=== PATIENT | male | born 1995 ===

== ENCOUNTER 2017-01-04 00:28 | Emergency (ER) | payer OTHER ==
[2017-01-04] MEDS ORDERED: Iohexol 240 (50 ml) PO ONE (00:44)
[2017-01-04] MEDS ORDERED: Iohexol 240 (50 ml) ONE (01:03)
[2017-01-04 01:13] LABS: BASO % 0.7 % (0.0-2.0); EOS # 0.2 K/uL (0.0-0.7); EOS % 3.2 % (0.0-4.0); HEMATOCRIT 40.1 % (35.0-51.0); LYMPH # 2.8 K/uL (1.0-4.3); LYMPH % 42.1 % (20.0-40.0); MEAN CELL VOLUME 90.5 fl (80.0-94.0); MEAN CORPUSCULAR HEMOGLOBIN 29.9 pg (27.0-31.0); MEAN CORPUSCULAR HGB CONC 33.1 g/dL (33.0-37.0); MEAN PLATELET VOLUME 9.4 fl (7.2-11.7); MONO # 0.6 K/uL (0.0-0.8); MONO % 8.6 % (0.0-10.0); NEUT % 45.4 % (50.0-75.0); NRBC % 0.1 % (0.0-0.0); RED CELL DISTRIBUTION WIDTH 12.8 % (11.5-14.5); WHITE BLOOD COUNT 6.6 K/uL (4.8-10.8)
[2017-01-04 01:19] LABS: RBC URINE 3 /hpf (0-3); URINE BILIRUBIN NEGATIVE (NEGATIVE); URINE BLOOD NEGATIVE (NEGATIVE); URINE COLOR YELLOW (YELLOW); URINE GLUCOSE (UA) NEG (Normal); URINE KETONE NEGATIVE (NEGATIVE); URINE LEUKOCYTE ESTERASE NEG Leu/uL (Negative); URINE PROTEIN NEGATIVE (NEGATIVE); URINE UROBILINOGEN 0.2-1.0 mg/dL (0.2-1.0); WBC URINE 1 /hpf (0-5)
[2017-01-04 01:20] LABS: ALB/GLOB RATIO 1.6 (1.0-2.1); ALKALINE PHOSPHATASE 69 U/L (38-126); ALT/SGPT 29 U/L (21-72); AST/SGOT 28 U/L (17-59); BILIRUBIN,TOTAL 0.8 mg/dl (0.2-1.3); BLOOD UREA NITROGEN 14 mg/dl (9-20); CALCIUM 9.4 mg/dL (8.4-10.2); CARBON DIOXIDE 23 mmol/L (22-30); CHLORIDE 106 mmol/L (98-107); GFR AFRICAN-AMERICAN > 60; GLUCOSE,RANDOM 97 mg/dL (75-110); LIPASE 62 U/L (23-300); POTASSIUM 3.8 MMOL/L (3.6-5.0); SODIUM 143 mmol/l (132-148); TOTAL PROTEIN 7.4 G/DL (6.3-8.2)
--- NOTE | 2017-01-04 01:29 | ED PDOC ---
HPI: Abdomen Time Seen by Provider: 01/04/17 00:39 Chief Complaint (Nursing): Abdominal Pain Chief Complaint (Provider): Right sided abdominal pain History Per: Patient History/Exam Limitations: no limitations Onset/Duration Of Symptoms: Days (X3 weeks) Current Symptoms Are (Timing): Still Present Location Of Pain/Discomfort: RUQ Associated Symptoms: Nausea, Vomiting (Makes pain feel better) Exacerbating Factors: Food (pain worsens when eating) Additional Complaint(s): Tab Otto is a 21 year old male with a past medical history including GCPD deficiency who presents to the ED with complaints of right sided abdominal pain x3 weeks worse when he eats associated with some nausea. When patient forces himself to vomit he feels better and the pain is worse tonight. Patient admits to recently becoming sexually active and is concerned about STDs. Past Medical History Reviewed: Historical Data, Nursing Documentation, Vital Signs Vital Signs: Last Vital Signs Temp 98.4 F 01/04/17 07:35 Pulse 68 01/04/17 10:32 Resp 16 01/04/17 10:32 BP 119/54 L 01/04/17 10:32 Pulse Ox 99 01/04/17 10:32 - Medical History Other PMH: GCPD Deficiency - Surgical History Surgical History: No Surg Hx - Family History Family History: States: No Known Family Hx - Social History Alcohol: None Drugs: Denies - Home Medications Home Medications: Ambulatory Orders Medication Instructions Recorded No Known Home Med 01/04/17 - Allergies Allergies/Adverse Reactions: Allergies Allergy/AdvReac Type Severity Reaction Status Date / Time blueberry Allergy RASH Verified 01/04/17 01:00 dapsone Allergy RASH Verified 01/04/17 01:00 kan hassan Allergy RASH Verified 01/04/17 01:00 legumes Allergy RASH Verified 01/04/17 01:00 methylene blue Allergy RASH Verified 01/04/17 01:02 nitrofurantoin Allergy RASH Verified 01/04/17 01:00 phenazopyridine Allergy RASH Verified 01/04/17 01:00 primaquine Allergy RASH Verified 01/04/17 01:00 tolonium chloride Allergy RASH Verified 01/04/17 01:02 [From Toluidine Blue O] Review of Systems ROS Statement: Except As Marked, All Systems Reviewed And Found Negative Gastrointestinal: Positive for: Nausea, Vomiting, Abdominal Pain (Right sided) Physical Exam - Reviewed Nursing Documentation Reviewed: Yes Vital Signs Reviewed: Yes - Physical Exam Appears: Positive for: Well, No Acute Distress Head Exam: Positive for: ATRAUMATIC, NORMAL INSPECTION, NORMOCEPHALIC Skin: Positive for: Normal Color, Warm, Dry Eye Exam: Positive for: Normal appearance, EOMI, PERRL ENT: Positive for: Normal ENT Inspection Neck: Positive for: Normal, Painless ROM, Supple Cardiovascular/Chest: Positive for: Regular Rate, Rhythm. Negative for: Murmur , Tachycardia Respiratory: Positive for: Normal Breath Sounds. Negative for: Wheezing, Respiratory Distress Gastrointestinal/Abdominal: Positive for: Bowel Sounds, Soft, Tenderness (Mild RUQ to palpation), Other (no RLQ or McBurney's point tenderness) Back: Positive for: Normal Inspection. Negative for: L CVA Tenderness, R CVA Tenderness Extremity: Positive for: Normal ROM. Negative for: Deformity, Swelling Neurologic/Psych: Positive for: Alert, Oriented - Laboratory Results Result Diagrams: 01/04/17 01:09 01/04/17 01:09 - ECG O2 Sat by Pulse Oximetry: 98 Pulse Ox Interpretation: Normal (RA) Medical Decision Making Medical Decision Makin: Initial Impression: Cholelithiasis vs. Cholecystitis vs. Pancreatitis Initial plan: * CT A/P with PO and IV * CMP, Lipase, CBC * Chlamydia/GC RNA, TNA * Rapid HIV, RPR * UA * Omnipaque 240 50ml PO * Zofran 4mg IVP * Re-eval Scribe Attestation: Documented by Mari Lyon acting as a scribe for Santiago Medina MD. Provider Scribe Attestation: All medical record entries made by the Scribe were at my direction and personally dictated by me. I have reviewed the chart and agree that the record accurately reflects my personal performance of the history, physical exam, medical decision making, and the department course for this patient. I have also personally directed, reviewed, and agree with the discharge instructions and disposition. Disposition - Clinical Impression Clinical Impression: Abdominal discomfort - Disposition Disposition: Transfer of Care Disposition Time: 07:00 Condition: STABLE Instructions: Abdominal Pain (ED) Forms: [facility] ED School/Work Excuse Patient Signed Over To: Jeanne Verde Handoff Comments: pending u/s and reassessment
[2017-01-04] MEDS ORDERED: Iohexol 350 MG/100 ML VIAL ONE (03:06)
[2017-01-04] MEDS ORDERED: Sodium Chloride 0.9% 50 ML IV ONE (03:06)
--- NOTE | 2017-01-04 07:43 | ED PDOC ---
- Laboratory Results Result Diagrams: 01/04/17 01:09 01/04/17 01:09 - ECG O2 Sat by Pulse Oximetry: 98 Medical Decision Making Medical Decision Makin: Patient was signed over to me by Rocco Medina MD pending US, reassessment. 1000: patient without discomfort. CT and US reports did not reveal pathology. will d/c Disposition Doctor Will See Patient In The: Office Counseled Patient/Family Regarding: Diagnosis - Clinical Impression Clinical Impression: Abdominal discomfort - POA Present On Arrival: None - Disposition Disposition: Routine/Home Disposition Time: 10:23 Condition: STABLE Instructions: Abdominal Pain (ED) Forms: [facility] ED School/Work Excuse Additional Comments - Additional Comments Additional Comments: Scribe Attestation: Documented by Travis Morrow acting as a scribe for Jeanne Verde MD. Provider Scribe Attestation: All medical record entries made by the Scribe were at my direction and personally dictated by me. I have reviewed the chart and agree that the record accurately reflects my personal performance of the history, physical exam, medical decision making, and the department course for this patient. I have also personally directed, reviewed, and agree with the discharge instructions and disposition.
--- NOTE | 2017-01-04 08:19 | CT ---
PROCEDURE: CT Abdomen and Pelvis with contrast HISTORY: RUQ pain COMPARISON: January 04, 2017. Right upper quadrant ultrasound. TECHNIQUE: Contrast dose: 90 cc Omnipaque 350. All Radiation dose: Total exam DLP = 260.14 go mGy-cm. This CT exam was performed using one or more of the following dose reduction techniques: Automated exposure control, adjustment of the mA and/or kV according to patient size, and/or use of iterative reconstruction technique. FINDINGS: LOWER THORAX: Unremarkable. LIVER: Unremarkable. No gross lesion or ductal dilatation. GALLBLADDER AND BILE DUCTS: Unremarkable. PANCREAS: Unremarkable. No gross lesion or ductal dilatation. SPLEEN: Unremarkable. ADRENALS: Unremarkable. No mass. KIDNEYS AND URETERS: Unremarkable. No hydronephrosis. No solid mass. VASCULATURE: Unremarkable. No aortic aneurysm. BOWEL: Unremarkable. No obstruction. No gross mural thickening. APPENDIX: Normal appendix. PERITONEUM: Unremarkable. No free fluid. No free air. LYMPH NODES: Unremarkable. No enlarged lymph nodes. BLADDER: Unremarkable. REPRODUCTIVE: Unremarkable. BONES: No acute fracture. OTHER FINDINGS: None. IMPRESSION: No acute findings related to/accounting for the clinical presentation. Concordant results (preliminary interpretation) provided by [facility]. Procedure Completed: 03:24. Preliminary ([facility]) Report: Dictated and Authenticated: 03:50. Final Interpretation: 08:17. January 04, 2017.
[2017-01-04 08:32] VITALS: TEMP 98.4
--- NOTE | 2017-01-04 08:38 | US ---
HISTORY: Right upper quadrant pain/cholecystitis suspected. COMPARISON: January 04, 2017. Abdominal pelvic CT. TECHNIQUE: Sonographic evaluation of the right upper quadrant of the abdomen. FINDINGS: LIVER: Measures 13.9 cm in length. Patent portal vein. Portal venous flow: Hepatopetal. Unremarkeable echogenicity of the liver parenchyma. No mass. No intrahepatic bile duct dilatation. GALLBLADDER: Unremarkable. No gallstones. COMMON BILE DUCT: Measures 3.0 mm. No stones. No dilatation. PANCREAS: Unremarkable as visualized. No mass. No ductal dilatation. RIGHT KIDNEY: Measures 3.9 x 9.7 cm in length. Normal echogenicity. No calculus, mass, or hydronephrosis. AORTA: No aneurysmal dilatation. IVC: Unremarkable. OTHER FINDINGS: None . IMPRESSION: No significant or acute findings to account for/ related to the clinical presentation.
[2017-01-04 10:33] VITALS: BP 119/54; PULSE 68; RESP 16
[2017-01-05 02:53] VITALS: O2SAT 98
== END 2017-01-04 10:35 | disposition home or self-care (01) ==
LOC: H.ER 00:28
DX: R10.9 Unspecified abdominal pain (principal); D55.0 Anemia due to glucose-6-phosphate dehydrogenase [G6PD] deficiency